=== PATIENT | female | born 1990 | race Caucasian/White ===

== ENCOUNTER 2017-02-04 02:03 | Emergency (ER) | payer OTHER ==
[2017-02-04 02:52] VITALS: BP 134/94
== END 2017-02-04 02:52 | disposition home or self-care (01) ==
LOC: ED 02:03
DX: R21 Rash and other nonspecific skin eruption (principal); F32.9 Major depressive disorder, single episode, unspecified

== ENCOUNTER 2017-12-16 19:01 | Emergency (ER) | payer OTHER ==
[~2017-12-16] VITALS: Ht 170.2 cm; Wt 116.6 kg
[2017-12-16 20:04] VITALS: BP 145/89
== END 2017-12-16 20:04 | disposition home or self-care (01) ==
LOC: ED 19:01
DX: S90.415A Abrasion, left lesser toe(s), initial encounter (principal); Z88.8 Allergy status to other drugs, medicaments and biological substances; W17.89XA Other fall from one level to another, initial encounter; Y93.89 Activity, other specified; Y92.89 Other specified places as the place of occurrence of the external cause; Y99.8 Other external cause status